=== PATIENT | male | born 1955 | race American Indian/Alaskan Native ===

== ENCOUNTER 2025-01-29 03:19 | Emergency (ER) | payer MEDICARE, OTHER ==
[~2025-01-29] VITALS: Ht 188 cm; Wt 130.0 kg
[~2025-01-29 03:19] MED LIST: ASPIR 8181 MG PO; FUROSEMIDE20 MG PO; LEVEMIR100 UNIT/1 SUB-Q; MAGNESIUM100 MG PO; METFORMIN HCL500 MG PO; VITAMIN D5000 UNIT PO; VITAMIN E1000 UNI3 PO
[2025-01-29 03:56] LABS: BASOPHILS 0.5 % (0.2-1.2); EOSINOPHILS 3.3 % (0.8-7.0); LYMPHOCYTES 20.7 % (21.8-53.1); MCH 26.5 PG (25.7-32.2); MCHC 31.4 g/dL (32.3-36.5); MCV 84.3 fL (79.0-92.2); MONOCYTES 6.5 % (5.3-12.2); NEUTROPHILS 68.8 % (34.0-67.9); RBC 4.98 M/uL (4.63-6.08)
[2025-01-29 04:16] LABS: ALT (SGPT) 27.0 U/L (14-59); AST (SGOT) 21.0 U/L (15-37); GLOMERULAR FILTRATION RATE,EST 28.0 mL/min (>60); PROTEIN, TOTAL 6.2 g/dL (6.4-8.2); UREA NITROGEN 39.0 mg/dL (7-18)
[2025-01-29] MEDS ORDERED: LACTATED RINGER'S 1,000 ML IV ONE (05:15)
[2025-01-29 09:03] LABS: BLOOD/HGB, URINE NEGATIVE (Negative); KETONE, URINE NEGATIVE (Negative); LEUK ESTERASE, URINE NEGATIVE (negative); NITRITE, URINE NEGATIVE (negative)
[2025-01-29 09:17] LABS: BACTERIA, URINE NONE SEEN /hpf (negative); CASTS, URINE NONE SEEN \\lpf; CRYSTALS, URINE NONE SEEN (0-1+); EPITHELIAL CELLS, URINE 0 /lpf (0-1+); REFLEX CULTURE, URINE No (No)
[2025-01-29 10:44] VITALS: BP 159/71
== END 2025-01-29 10:42 | disposition home or self-care (01) ==
LOC: ED 03:19
PROVIDERS: Internal Medicine
DX: R10.9 Unspecified abdominal pain (principal); E11.9 Type 2 diabetes mellitus without complications; Z79.82 Long term (current) use of aspirin; Z79.4 Long term (current) use of insulin; Z79.899 Other long term (current) drug therapy
CPT/HCPCS: 36415; 74176; 80053; 81001; 83690; 85025; 99284-25; G0480; J7121